=== PATIENT | male | born 1950 | race Caucasian/White ===

== ENCOUNTER 2020-01-18 09:49 | Observation (INO) | payer MEDICARE, OTHER ==
[~2020-01-18] VITALS: Ht 175.3 cm; Wt 86.8 kg
[2020-01-18] MEDS ORDERED: UBID100C41 PO (10:42)
[2020-01-18] MEDS ORDERED: AMLO-150 PO (10:42)
[2020-01-18] MEDS ORDERED: LATA7.5D EACHEYE (10:42)
[2020-01-18] MEDS ORDERED: CHOL10003 PO (10:42)
[2020-01-18] MEDS ORDERED: ATOR40TA PO (10:42)
[2020-01-18] MEDS ORDERED: LOSA100T14 PO (10:42)
[2020-01-18] MEDS ORDERED: CLOP75TA52 PO (10:42)
[2020-01-18] MEDS ORDERED: ASPI81TA45 PO (10:42)
[2020-01-18] MEDS ORDERED: GLUC1TAB21 PO (10:42)
[2020-01-18 11:06] LABS: BASOPHILS # (AUTO) 0.04 x10^3/uL (0-0.1); BASOPHILS % (AUTO) 1 % (0-1); EOSINOPHILS # (AUTO) 0.19 x10^3/uL (0-0.4); EOSINOPHILS % (AUTO) 3 % (1-7); LYMPHOCYTES # (AUTO) 0.98 x10^3/uL (1-3.4); LYMPHOCYTES % (AUTO) 18 % (22-44); MD NO; MEAN CORPUSCULAR HEMOGLOBIN 30.9 pg (27.5-34.5); MEAN CORPUSCULAR HGB CONC 34.1 g/dL (33.2-36.2); MEAN CORPUSCULAR VOLUME 90.7 fL (81-97); MEAN PLATELET VOLUME 8.4 fL (7.4-10.4); MONOCYTES # (AUTO) 0.42 x10^3/uL (0.2-0.8); MONOCYTES % (AUTO) 8 % (2-9); NEUTROPHILS # (AUTO) 3.97 x10^3/uL (1.8-6.8); NEUTROPHILS % (AUTO) 71 % (42-75); PLATELET COUNT 257 x10^3/uL (130-400); RED BLOOD COUNT 5.05 x10^6/uL (4.38-5.82); RED CELL DISTRIBUTION WIDTH 12.1 % (9.4-14.8)
[2020-01-18] MEDS ORDERED: TICAGRELOR 90 MG TABLET ONE (11:13)
[2020-01-18] MEDS ORDERED: FENTANYL PF 100 MCG/2ML ONE ×2 (11:13→12:02)
[2020-01-18] MEDS ORDERED: LIDOCAINE-MPF 1%, 5ML ONE (11:13)
[2020-01-18] MEDS ORDERED: HEPARIN 1,000 UNITS/ML, 10ML ONE (11:13)
[2020-01-18] MEDS ORDERED: BIVALIRUDIN 250 MG ONE (11:13)
[2020-01-18] MEDS ORDERED: VERAPAMIL 2.5 MG/ML, 2ML ONE (11:13)
[2020-01-18 11:16] LABS: ANION GAP 5 mmol/L (5-15); CALCIUM 8.9 mg/dL (8.5-10.1); CHLORIDE 113 mmol/L (98-107)
[2020-01-18] MEDS ORDERED: MIDAZOLAM 1 MG/ML, 2ML ONE (11:33)
[2020-01-18] MEDS ORDERED: SODIUM CHLORIDE 0.9% 1,000 ML IV SCH (12:29)
[2020-01-18 16:10] VITALS: BP 138/86
[2020-01-18] MEDS: SODIUM CHLORIDE 0.9% 1,000 ML IV SCH (17:44)
[2020-01-18 19:09] VITALS: BP 134/75
[2020-01-18] MEDS ORDERED: ATORVASTATIN 80 MG TABLET PO SCH (21:00)
[2020-01-18] MEDS ORDERED: TEMPLATE NON-FORMULARY MED. (Latanoprost/Pf (Latanoprost 0.005% Eye Drop) 1 DROP) EACHEYE SCH (21:00)
[2020-01-18] MEDS ORDERED: ATORVASTATIN 40 MG TABLET PO SCH (21:00)
[2020-01-18] MEDS ORDERED: LATANOPROST OPHTH 0.005%, 2.5ML EACHEYE SCH (21:00)
[2020-01-19 04:22] VITALS: BP 137/84
[2020-01-19 07:35] VITALS: BP 138/79
[2020-01-19] MEDS: SODIUM CHLORIDE 0.9% 1,000 ML IV SCH ×2 (07:45)
[2020-01-19] MEDS ORDERED: CLOPIDOGREL 75 MG TABLET PO SCH ×2 (09:00)
[2020-01-19] MEDS ORDERED: ASPIRIN 81 MG TABLET EC PO SCH ×2 (09:00)
[2020-01-19] MEDS ORDERED: AMLODIPINE 5 MG TABLET PO SCH ×2 (09:00)
[2020-01-19] MEDS ORDERED: LOSARTAN 100 MG TAB PO SCH (09:00)
[2020-01-19] MEDS ORDERED: LOSARTAN 50MG TABLET PO SCH (09:00)
== END 2020-01-19 09:40 | disposition home or self-care (01) ==
LOC: CACL 09:49 → 5SO 16:22 → CACL 01-19 08:14 → DCLOUNGE 01-19 09:36
PROVIDERS: ADMIT Internal Medicine Cardiovascular Disease; ATTEND Internal Medicine Cardiovascular Disease
DX: R07.89 Other chest pain (principal); I25.10 Atherosclerotic heart disease of native coronary artery without angina pectoris; I10 Essential (primary) hypertension; E78.2 Mixed hyperlipidemia; M10.9 Gout, unspecified; Z95.1 Presence of aortocoronary bypass graft; Z79.82 Long term (current) use of aspirin; Z79.899 Other long term (current) drug therapy
CPT/HCPCS: 36415; 80048; 85025; 93458; 99156; 99157; C1725; C1769; C1874; C1887; C1894; C9600; G0378; J0583; J1644; J2250; J3010; Q9967